=== PATIENT | female | born 1990 | race Caucasian/White ===

== ENCOUNTER 2016-12-09 15:41 | Emergency (ER) | payer OTHER ==
[~2016-12-09] VITALS: Ht 165.1 cm; Wt 105.9 kg
[2016-12-09 15:54] VITALS: BP 111/68
--- NOTE | 2016-12-09 15:54 | NUR ---
Patient ambulated to bed 06.
--- NOTE | 2016-12-09 16:00 | NUR ---
PATIENT PRESENTS TO ED WITH 26F BIB SELF C/O PRESSURE ON URINATION, URINARY FREQUENCY AND RETENTION X TODAY. HX: PT DENIES RX: PT DENIES; DENIES N/V/D; SKIN IS PINK/WARM/DRY; AAOX4 WITH EVEN AND STEADY GAIT; LUNGS CLEAR BL; HR EVEN AND REGULAR; PT DENIES ANY FEVER, CP, SOB, OR COUGH AT THIS TIME; PATIENT STATES PAIN OF 5/10 AT THIS TIME; VSS; PATIENT POSITIONED FOR COMFORT; HOB ELEVATED; BEDRAILS UP X2; BED DOWN. ER MD MADE AWARE OF PT STATUS.
--- NOTE | 2016-12-09 16:04 | NUR ---
DR BILLS EVALUATING AAO PT AT BEDSIDE
[2016-12-09 16:10] VITALS: BP 111/68
== END 2016-12-09 16:10 | disposition home or self-care (01) ==
LOC: MED 15:41
DX: N39.0 Urinary tract infection, site not specified (principal)
CPT/HCPCS: 81002; 81025; 99283

== ENCOUNTER 2017-12-27 22:19 | Emergency (ER) | payer OTHER ==
[~2017-12-27] VITALS: Ht 167.6 cm; Wt 113.4 kg
[2017-12-27 22:25] VITALS: BP 113/69
--- NOTE | 2017-12-27 22:28 | NUR ---
TO BED # 12 AMBULATORY, REPORT GIVEN TO ANJALI ANDREW
--- NOTE | 2017-12-27 22:28 | NUR ---
PT PRESENTS TO ED WITH RIGHT KNREE TO ANKLE PAIN X2 DAYS. DEEP ACHE WITH 7/10 PAIN. CMS INTACT. NO REDNESS, NO HEAT, NO EDEMA PRESENT AT THIS TIME. VSS. BILAT PAPLPABLE PULSES. POSITIONED IN BED FOR COMFORT. ER MD AWARE. CONTINUE TO MONITOR.
[2017-12-27] MEDS ORDERED: ACETAMINOPHEN 325 MG TAB PO ONE (23:55)
--- NOTE | 2017-12-28 | NUR ---
PT IN BED WITH VSS. ER MD AWARE. CONTINUE TO MONITOR.
--- NOTE | 2017-12-28 00:41 | NUR ---
US AT BEDSIDE.
--- NOTE | 2017-12-28 01:13 | NUR ---
Patient discharged with v/s stable. Written and verbal after care instructions given and explained. Patient verbalized understanding. Ambulatory with steady gait. All questions addressed prior to discharge. Advised to follow up with PMD.
[2017-12-28 01:14] VITALS: BP 128/72
== END 2017-12-28 01:10 | disposition home or self-care (01) ==
LOC: MED 22:19
DX: M79.604 Pain in right leg (principal); M25.561 Pain in right knee
CPT/HCPCS: 93970; 99284; Q0092

== ENCOUNTER 2018-02-09 19:03 | Emergency (ER) | payer OTHER ==
[~2018-02-09] VITALS: Ht 167.6 cm; Wt 113.4 kg
[2018-02-09 19:14] VITALS: BP 117/70
[2018-02-09 20:42] LABS: BASOPHILS % (AUTO) 0.2 % (0.0-2.0); EOSINOPHILS # (AUTO) 0.1 K/uL (0-0.4); EOSINOPHILS % (AUTO) 0.9 % (0.0-4.0); HEMATOCRIT 36.8 % (36-48); HEMOGLOBIN 12.3 g/dL (12.0-16.0); LYMPHOCYTES # (AUTO) 1.6 K/uL (2.5-16.5); LYMPHOCYTES % (AUTO) 21.8 % (20.5-51.1); MEAN CORPUSCULAR HEMOGLOBIN 30 pg (27-31); MEAN CORPUSCULAR HGB CONC 34 g/dL (33-37); MEAN CORPUSCULAR VOLUME 88.2 fL (80-94); MONOCYTES # (AUTO) 0.5 K/uL (0.8-1.0); MONOCYTES % (AUTO) 7.2 % (1.7-9.3); NEUTROPHILS # (AUTO) 5.2 K/uL (1.8-7.7); NEUTROPHILS % (AUTO) 69.9 % (42.2-75.2); PLATELET COUNT (AUTO) 155 K/uL (140-450); RED BLOOD CELL COUNT(AUTO) 4.17 MIL/uL (4.20-5.40); RED CELL DISTRIBUTION WIDTH 13.5 % (11.6-13.7); WHITE BLOOD COUNT (AUTO) 7.5 K/uL (4.8-10.8)
[2018-02-09 20:58] LABS: ANION GAP 12.6 (8-16); CARBON DIOXIDE 25.3 mmol/L (21-32); CREATININE 0.6 mg/dL (0.6-1.3); POTASSIUM 3.9 mmol/L (3.5-5.1)
[2018-02-09 21:57] LABS: APPEARANCE,URINE CLEAR (CLEAR); BILIRUBIN,URINE NEGATIVE (NEGATIVE); BLOOD, URINE NEGATIVE (NEGATIVE); COLOR,URINE YELLOW (YELLOW); LEUKOCYTE ESTERASE ,URINE TRACE (NEGATIVE); NITRITE, URINE NEGATIVE (NEGATIVE); UGLUCOSE NEGATIVE (NEGATIVE)
[2018-02-09 22:00] LABS: RBC,URINE 0-5 (RARE) /HPF (0-5); WBC,URINE 0-5 (RARE) /HPF (0-5)
[2018-02-09 22:15] VITALS: BP 116/68
== END 2018-02-09 22:15 | disposition home or self-care (01) ==
LOC: MED 19:03
DX: O23.42 Unspecified infection of urinary tract in pregnancy, second trimester (principal); Z3A.17 17 weeks gestation of pregnancy
CPT/HCPCS: 36415; 76815; 80048; 81001; 81025; 84702; 85025; 86900; 86901; 87086; 99284; Q0092

== ENCOUNTER 2018-03-19 10:18 | Emergency (ER) | payer MEDICAID, OTHER ==
[~2018-03-19] VITALS: Ht 165.1 cm; Wt 112.9 kg
[2018-03-19 10:20] VITALS: BP 102/57
--- NOTE | 2018-03-19 10:20 | NUR ---
PT. ARRIVED TO ED W/ R EAR PAIN X 1 DAY , DENIES DRAINAGE. DENIES N/V/D. DENIES FEVER OR CHILLS. INTERMITTENT DIZZYNESS. VSS. WILL CONTINUE TO MONITOR. ER MD BILLS MADE AWARE. SAFETY PRECAUTIONS IMPLEMENTED. WILL CONTINUE TO MONITOR.
[2018-03-19 10:37] VITALS: BP 102/57
== END 2018-03-19 10:37 | disposition home or self-care (01) ==
LOC: MED 10:18
DX: H61.21 Impacted cerumen, right ear (principal)
CPT/HCPCS: 99281

== ENCOUNTER 2018-10-26 22:18 | Emergency (ER) | payer OTHER, MEDICAID ==
[~2018-10-26] VITALS: Ht 167.6 cm; Wt 90.7 kg
[2018-10-26 22:20] VITALS: BP 119/80
--- NOTE | 2018-10-26 22:23 | NUR ---
TO LOBBY A/W BED AMBULATORY
--- NOTE | 2018-10-26 23:08 | NUR ---
PT AMBULATED TO BED 09
--- NOTE | 2018-10-26 23:10 | NUR ---
27/F PRESENTED TO ED C/O LOWER ABD PAIN, CRAMPING , AND VAG SPOTTING STARTED 4 HOURS AGO. 6/10 PAIN "COMES AND GOES CRAMPING". STATES DISCHARGE PRESENT. NO MEDS TAKEN PRIOR TO ARRIVING FOR PAIN RELIEF. BOWEL SOUNDS HEARD IN ALL QUADRANTS. SOFT NON TENDER. +N/D -V -FEVER. DENEIS PAIN WHEN VOIDING. LMP August. STATES DELIVERED BABY IN JULY 2018. DENIES PMH. DENIES RX. DENIES ALLERGIES.
[2018-10-26] MEDS: KETOROLAC 60 MG/2 ML VIAL IM ONE (23:36)
--- NOTE | 2018-10-27 01:05 | NUR ---
Dr. Long examining patient.
[2018-10-27 01:17] VITALS: BP 109/78
== END 2018-10-27 01:17 | disposition home or self-care (01) ==
LOC: MED 22:18
DX: N93.9 Abnormal uterine and vaginal bleeding, unspecified (principal)
CPT/HCPCS: 96372; 99283; J1885

== ENCOUNTER 2019-10-22 13:07 | Emergency (ER) | payer OTHER, MEDICAID, SELFPAY ==
[~2019-10-22] VITALS: Ht 167.6 cm; Wt 99.8 kg
[2019-10-22 13:14] VITALS: BP 108/62
--- NOTE | 2019-10-22 13:30 | NUR ---
DR ROSS AT BEDSIDE EVALUATING PT.
[2019-10-22] MEDS ORDERED: NACL 0.9% 1,000 ML IV ONE (13:35)
[2019-10-22] MEDS ORDERED: ACETAMINOPHEN 325 MG TAB PO ONE (13:35)
[2019-10-22] MEDS ORDERED: DEXAMETHASONE 10 MG/ML VIAL IVP ONE (13:35)
[2019-10-22] MEDS ORDERED: LIDOCAINE VISCOUS 2% 20 ML UDC PO ONE (13:35)
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
--- NOTE | 2019-10-22 14:41 | NUR ---
DR ROSS AT BEDSIDE REEVALUATING PT.
--- NOTE | 2019-10-22 15:36 | NUR ---
dr butt informed and aware pt bp is low and pt stated light headed . to recheck bp.
[2019-10-22 15:48] VITALS: BP 94/50
--- NOTE | 2019-10-22 15:49 | NUR ---
Patient discharged with v/s stable. Written and verbal after care instructions given and explained regarding strep throat. Patient alert, oriented and verbalized understanding of instructions. Ambulatory with steady gait. All questions addressed prior to discharge. ID band removed. Patient advised to follow up with PMD. Rx of augmentin and cepacol sore throat given. Patient educated on indication of medication including possible reaction and side effects. Opportunity to ask questions provided and answered.
== END 2019-10-22 15:49 | disposition home or self-care (01) ==
LOC: MED 13:07
DX: J02.0 Streptococcal pharyngitis (principal); Z20.828 Contact with and (suspected) exposure to other viral communicable diseases; R51 Headache
CPT/HCPCS: 87081; 96361; 96374; 99283; J1100; J7030; U0003

== ENCOUNTER 2019-11-08 12:07 | Emergency (ER) | payer OTHER, MEDICAID ==
[~2019-11-08] VITALS: Ht 167.6 cm; Wt 109.8 kg
[2019-11-08 12:24] VITALS: BP 121/73
--- NOTE | 2019-11-08 12:35 | NUR ---
PT AMB TO BED 9
--- NOTE | 2019-11-08 12:40 | NUR ---
C/O SORE THROAT , HEADACHE X 2 DAYS. MED HX: DENIES
--- NOTE | 2019-11-08 13:33 | NUR ---
strep swab collected and walked to lab
--- NOTE | 2019-11-08 14:40 | NUR ---
Strep A+-- critical value received from lab. Dr Peoples made aware
[2019-11-08 14:50] VITALS: BP 121/73
--- NOTE | 2019-11-08 14:51 | NUR ---
Patient discharged with v/s stable. Written and verbal after care instructions given and explained. Patient alert, oriented and verbalized understanding of instructions. Ambulatory with steady gait. All questions addressed prior to discharge. ID band removed. Patient advised to follow up with PMD. Rx of CLINDAMYCIN, NAPROSYN given. Patient educated on indication of medication including possible reaction and side effects. Opportunity to ask questions provided and answered.
== END 2019-11-08 14:51 | disposition home or self-care (01) ==
LOC: MED 12:07
DX: J02.0 Streptococcal pharyngitis (principal)
CPT/HCPCS: 87081; 99283

== ENCOUNTER 2020-08-17 20:31 | Emergency (ER) | payer OTHER, MEDICAID ==
[~2020-08-17] VITALS: Ht 167.6 cm; Wt 90.7 kg
[2020-08-17 21:16] VITALS: BP 126/90
[2020-08-17 22:50] VITALS: BP 118/78
== END 2020-08-17 22:50 | disposition home or self-care (01) ==
LOC: MED 20:31
DX: R50.9 Fever, unspecified (principal); Z20.822 Contact with and (suspected) exposure to COVID-19
CPT/HCPCS: 99283; U0003

== ENCOUNTER 2020-12-01 17:19 | Emergency (ER) | payer OTHER, MEDICAID ==
[~2020-12-01] VITALS: Ht 167.6 cm; Wt 90.7 kg
[2020-12-01 17:22] VITALS: BP 138/83
[2020-12-01] MEDS ORDERED: LORazepam 2 MG/ML VIAL ONE (17:29)
--- NOTE | 2020-12-01 17:30 | NUR ---
PT AMB TO BED 9.
--- NOTE | 2020-12-01 17:31 | NUR ---
reji peres bedside evaluating pt
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
[2020-12-01] MEDS ORDERED: NAPR-54 PO (17:39)
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
[2020-12-01 18:17] VITALS: BP 138/83
== END 2020-12-01 18:17 | disposition home or self-care (01) ==
LOC: MED 17:19
DX: S61.214A Laceration without foreign body of right ring finger without damage to nail, initial encounter (principal); S61.216A Laceration without foreign body of right little finger without damage to nail, initial encounter; Z79.899 Other long term (current) drug therapy; W45.8XXA Other foreign body or object entering through skin, initial encounter; Y93.G1 Activity, food preparation and clean up; Y92.89 Other specified places as the place of occurrence of the external cause; Y99.8 Other external cause status
CPT/HCPCS: 12001; 90471; 90715; 99283; J2060

== ENCOUNTER 2022-04-11 23:21 | Emergency (ER) | payer OTHER, MEDICAID ==
[~2022-04-11] VITALS: Ht 165.1 cm; Wt 90.7 kg
[~2022-04-11 23:21] MED LIST: NAPR-54 PO
[2022-04-11 23:30] VITALS: BP 120/67
--- NOTE | 2022-04-11 23:35 | NUR ---
PT TRIAGED THEN MOVED BACK TO [facility]
--- NOTE | 2022-04-12 00:01 | NUR ---
PT IS HERE FOR RIGHT LEG, CRAMP AND PULLING SENSATION. ALERT AND ORIENTED X4. ROOM AIR AND AMBULATORY
--- NOTE | 2022-04-12 00:11 | NUR ---
PT TO ULTRASOUND VIA W/C
--- NOTE | 2022-04-12 00:53 | NUR ---
PT TO BED 11
[2022-04-12 01:25] LABS: APPEARANCE,URINE HAZY (CLEAR); BILIRUBIN,URINE NEGATIVE (NEGATIVE); BLOOD, URINE NEGATIVE (NEGATIVE); COLOR,URINE YELLOW (YELLOW); LEUKOCYTE ESTERASE ,URINE NEGATIVE (NEGATIVE); NITRITE, URINE NEGATIVE (NEGATIVE); UGLUCOSE NEGATIVE (NEGATIVE)
[2022-04-12 01:33] LABS: CALCIUM OXALATE CRYSTALS,UR 0-10 /HPF (None Seen); RBC,URINE 0-5 /HPF (0-5); WBC,URINE 0-5 /HPF (0-5)
[2022-04-12] MEDS ORDERED: ACET-10509 PO (02:17)
[2022-04-12] MEDS ORDERED: CEPH-588 PO (02:17)
[2022-04-12 02:27] VITALS: BP 120/67
--- NOTE | 2022-04-12 03:56 | NUR ---
Patient discharged with v/s stable. Written and verbal after care instructions given and explained. Patient verbalized understanding. Ambulatory with steady gait. All questions addressed prior to discharge. Advised to follow up with PMD. pt left with her belongings.
== END 2022-04-12 02:27 | disposition home or self-care (01) ==
LOC: MED 23:21
DX: O9A.211 Injury, poisoning and certain other consequences of external causes complicating pregnancy, first trimester (principal); S83.91XA Sprain of unspecified site of right knee, initial encounter; O23.41 Unspecified infection of urinary tract in pregnancy, first trimester; Z3A.09 9 weeks gestation of pregnancy; Z79.899 Other long term (current) drug therapy; Z79.2 Long term (current) use of antibiotics; Z79.1 Long term (current) use of non-steroidal anti-inflammatories (NSAID); W18.40XA Slipping, tripping and stumbling without falling, unspecified, initial encounter; Y93.89 Activity, other specified; Y92.89 Other specified places as the place of occurrence of the external cause; Y99.8 Other external cause status
CPT/HCPCS: 81001; 81025; 87086; 93971; 99284